=== PATIENT | female | born 1975 | race Caucasian/White ===

== ENCOUNTER 2023-11-20 21:21 | Emergency (ER) | payer MEDICAID ==
[~2023-11-20] VITALS: Ht 149.9 cm; Wt 73.9 kg
[2023-11-20 21:41] VITALS: BP 159/96; PULSE 92; RESP 16; TEMP 98.1; O2SAT 97
[2023-11-20 22:26] VITALS: O2SAT 97
[2023-11-20] MEDS ORDERED: PRED20TA5 PO (22:32)
[2023-11-20] MEDS ORDERED: IBUP-2213 PO (22:32)
== END 2023-11-20 22:44 | disposition home or self-care (01) ==
LOC: MED 21:21
DX: H10.9 Unspecified conjunctivitis (principal); R03.0 Elevated blood-pressure reading, without diagnosis of hypertension; Z98.890 Other specified postprocedural states
CPT/HCPCS: 99283